=== PATIENT | male | born 1970 | race Caucasian/White ===

== ENCOUNTER 2023-10-12 16:20 | Emergency (ER) | payer OTHER, SELFPAY ==
[2023-10-12 16:34] VITALS: BP 115/84
[2023-10-12 16:54] LABS: % Basophils 1.1 % (0-2); % Eosinophils 1.4 % (0-6); % Immature Granulocytes 0.1 % (0-0.5); % Lymphocytes 30.4 % (20.5-51.1); % Monocytes 9.8 % (1.7-9.3); % Neutrophils 57.2 % (42.2-75.2); Absolute Basophils 0.1 10^3/uL (0-0.2); Absolute Eosinophils 0.1 10^3/uL (0-0.7); Absolute Lymphocytes 2.5 10^3/uL (1.2-3.4); Absolute Monocytes 0.8 10^3/uL (0.1-0.6); Absolute Neutrophils 4.7 10^3/uL (1.4-6.5); Hematocrit 42.2 % (39.0-52.0); Hemoglobin 15.3 g/dL (13.0-18.0); Mean Corp Hgb Conc. 36.3 g/dL (33.0-37.0); Mean Corpuscular Hgb 31.9 pg (27.0-31.0); Mean Corpuscular Volume 88.1 fL (80.0-94.0); Mean Platelet Volume 9.7 fL (7.4-10.4); Nucleated Red Blood Cells % 0 % (-); Platelet Count 227 10^3/uL (130-400); Red Blood Cell Count 4.79 10^6/uL (4.70-6.10); Red Cell Dist. Width 11.6 % (11.5-14.5); White Blood Cell Count 8.3 10^3/uL (4.8-10.8)
[2023-10-12 17:06] LABS: ALT (SGPT) 48 U/L (0-50); AST (SGOT) 37 U/L (17-59); Albumin 4.4 g/dl (3.5-5.0); Alkaline Phosphatase 76 U/L (38-126); Blood Urea Nitrogen 18 mg/dl (9-20); Calcium 9.3 mg/dl (8.4-10.2); Carbon Dioxide 28 mmol/L (22-30); Chloride 103 mmol/L (98-107); Glucose 84 mg/dl (70-99); Potassium 4.2 mmol/L (3.5-5.1); Sodium 138 mmol/L (135-145); Total Bilirubin 0.7 mg/dl (0.2-1.3); Total Protein 6.8 g/dl (6.3-8.2); eGFR > 60.00
[2023-10-12 17:16] LABS: Troponin I < 0.012 ng/ml
[2023-10-12 19:19] VITALS: BP 125/90
[2023-10-12 19:33] VITALS: BMI 28.5
--- NOTE | 2023-10-12 19:33 | ED.GENMED ---
History of Present Illness
General
Chief Complaint: Breathing Problem
Time Seen by Provider: 10/12/23 18:11
History of Present Illness
History of Present Illness:
61-year-old with history of A-fib on Xarelto presents to the emergency department for evaluation of intermittent shortness of breath ongoing for the past several weeks. Has chronic chest pain after coronary stenting 3 years ago, states this is
unchanged. Denies any changes to his exertional capacity, walks 3 miles daily. Denies any symptoms at present. No orthopnea. Denies any leg swelling or calf pain
Past History
Past History
ED Past Medical History: Arrthythmia and CAD
ED Past Surgical History: Cardiac
Social History
Tobacco: Non-smoker
Alcohol: Occasional
Drug: None
Personal:
Living: with family
Employment: Employed
Review of Systems
Review of Systems
Allergies reviewed?: Yes
All Other Systems: ROS reviewed and negative except as documented in HPI and ROS
Phy Exam
Physical Exam
Physical Exam:
GEN: Well appearing, NAD, WDWN
Eyes: PERRLA, EOMs intact, no scleral icterus
HENT: NCAT, oral mucosa moist
Lungs: CTAB, no wheezes, rales, rhonchi, normal chest wall excursion
Cardiac: RRR, no M/R/G, no peripheral edema. Radial pulses 2+ bilat
Abdomen: S, NT, ND, NABS, no masses or hepatosplenomegaly
Neuro: AO x 3
MSK: No gross deformity or ecchymosis. No edema. No digital clubbing
Skin: No rashes, petechiae. Normal color, no pallor or jaundice.
Psych: Calm, cooperative, proper hygiene
Scores
Heart Failure Risk
Heart Failure Risk Score: Not Applicable
Course
Orders/Labs/Results
Orders:
Orders
10/12/23 16:22
EKG [Electrocardiogram (*1)] Urgent
Reason for Study: Chest Pain
EKG- Treatment ONCE
10/12/23 16:41
Complete Blood Count/With Diff Urgent
[facility] Urgent
10/12/23 16:42
Comprehensive Metabolic Panel Urgent
Troponin I Urgent
10/12/23 18:41
CR Chest - 2 Views Urgent
Comment:
Reason For Exam: SOB
10/12/23 20:20
Add On- LAB Urgent
Tests Added?: [facility]
Abnormal Lab Results
10/12/23
16:41
MCH 31.9 H pg
(27.0-31.0)
Absolute Monos (auto) 0.8 H 10^3/uL
(0.1-0.6)
Monocytes % 9.8 H %
(1.7-9.3)
10/12/23 16:41
10/12/23 16:42
Vital Signs
Initial and Last Documented VS:
Initial Vital Signs
Temp Pulse Resp BP Pulse Ox
98.2 F 58 20 115/84 96
10/12/23 16:34 10/12/23 16:34 10/12/23 16:34 10/12/23 16:34 10/12/23 16:34
Last Documented Vital Signs
Temp Pulse Resp BP Pulse Ox
98.2 F 59 20 125/90 98
10/12/23 16:34 10/12/23 18:48 10/12/23 18:48 10/12/23 19:19 10/12/23 19:30
MDM/Problems Addressed
MDM/Problems Addressed:
Unclear etiology to SOB. Pt's EKG is nonischemic and trop negative. CXR clear. No exertional hypoxia on walk test. Recommend outpatient cardiology f/u. Doubt PE given OAC use
Comment
Comment:
EKG independently interpreted by me shows a bradycardia rate of [address] changes suggestive ischemia
*Critical Care Note
Total Time (30-74mins, 75-104mins- exclusive of procedures): Not Applicable
ED Attending Note
-
Portions of this chart may have been created with voice recognition software.� Occasional wrong word or��sound alike� substitutions may have occurred due to the inherent limitations of voice recognition software.
Discharge Plan
Departure
Patient Disposition: Home (Routine Discharge)
Date of Disposition: 10/12/23
Time of Disposition: 20:07
Patient with high blood pressure during this ER visit?: No
Discharge Problem:
Shortness of breath
Instructions: Shortness of Breath (Dyspnea) (DC)
Prescriptions:
No Action
lisinopril 2.5 MG tablet
2.5 mg PO DAILY Qty: 90 3RF
multivitamin Tablet
1 tab PO DAILY
aspirin 81 mg Tablet,Delayed Release (Dr/Ec)
81 mg PO DAILY
metoprolol succinate 25 MG tablet extended release 24 hr
12.5 mg PO DAILY
Xarelto 20 mg tablet
20 mg PO DAILY Qty: 90 3RF
Rx Instructions:
Please note increased dose
atorvastatin 80 MG tablet
80 mg PO DAILY Qty: 90 3RF
Patient Comments:
takes in am
Referrals:
Luli Holm PA-C [Family Provider] -
Activity Restrictions/Additional Instructions:
Follow up with your [employer]
Interventions
Interventions:
*Risk Screen - Suicide Last Done: 10/12/23 16:34
*General Assessment Last Done: 10/12/23 16:34
*Neglect/Abuse Screening Last Done: 10/12/23 16:34
ED- Fall Risk Assessment Last Done: 10/12/23 18:59
*Nursing Disposition Last Done: 10/12/23 20:26
ED- Cardiac Assessment Last Done: 10/12/23 18:59
ED- Pulmonary Assessment Last Done: 10/12/23 18:59
Discharge Date and Time
Discharge Date/Time: 10/12/23 20:27
Print Language: CENTRAL AFRICAN
[2023-10-15 16:01] LABS: Lyme Antibody Screen, EIA Negative (Negative)
== END 2023-10-12 20:27 | disposition home or self-care (01) ==
LOC: EMR 16:20
PROVIDERS: EMERGENCY PHYSICIAN Emergency Medicine; FAMILY PHYSICIAN Physician Assistant Medical
DX: R06.02 Shortness of breath (principal); R07.9 Chest pain, unspecified; I48.91 Unspecified atrial fibrillation; I25.10 Atherosclerotic heart disease of native coronary artery without angina pectoris; G89.29 Other chronic pain; Z95.5 Presence of coronary angioplasty implant and graft; Z79.01 Long term (current) use of anticoagulants
CPT/HCPCS: 99283; 71046; 80053; 84484; 85025; 86618; 93005

== ENCOUNTER → 2023-11-06 08:16 | Outpatient (REF) | payer OTHER, SELFPAY | LOC: HWRCS 08:16 | PROVIDERS: ATTENDING PHYSICIAN Internal Medicine; FAMILY PHYSICIAN Physician Assistant Medical | DX: R06.02 Shortness of breath (principal) | CPT/HCPCS: 93306 ==

== ENCOUNTER → 2023-11-10 06:45 | Outpatient (REF) | payer OTHER, SELFPAY | LOC: RSP 06:45 | PROVIDERS: ATTENDING PHYSICIAN Internal Medicine; FAMILY PHYSICIAN Nurse Practitioner Obstetrics & Gynecology | DX: R06.02 Shortness of breath (principal) | CPT/HCPCS: 94727; 94729; 94010 ==